=== PATIENT | female | born 1985 | race Caucasian/White ===

== ENCOUNTER 2018-05-19 08:23 | Emergency (ER) | payer MEDICAID ==
[~2018-05-19 08:23] MED LIST: AZI250 PO; BENZ-23 PO; GUAI480S48 PO; PREN-67 PO
--- NOTE | 2018-05-19 08:35 | ER Report ---
History and Physical Time Seen By MD: 08:33 Hx. of Stated Complaint: pateint reports that she is around 4-5 weeks . she noticed some bleeding earlier today after using the restroom HPI/ROS CHIEF COMPLAINT: Vaginal bleeding with HISTORY OF PRESENT ILLNESS: Patient is a 33-year-old female G2 para 1 1st was a full-term normal spontaneous vaginal delivery she is a smoker smoker for almost 15 years believe she is approximately 4-5 weeks her last menstrual cycle was 4-1/2 weeks ago she's taken 3 urine test all of which been positive that she has not seen any OB physicians at this point. Patient states that she awoke this morning had some mild abdominal cramping went to the bathroom after she urinated and noticed that there was some blood from her vagina denies any clots denies any abdominal pain at time of presentation. Patient's recent sexual activity was last evening. Patient denies any chest pain shortness of breath nausea vomiting diarrhea fever chills or additional complaints REVIEW OF SYSTEMS: Respiratory: No cough, no dyspnea. Cardiovascular: No chest pain, no palpitations. Gastrointestinal: No vomiting, no abdominal pain. Musculoskeletal: No back pain. Remainder of the 14 system rev: Yes Allergies: Coded Allergies: No Known Allergies (Verified Allergy, Mild, 07/06/07) Home Meds Reported Medications Vits W-Ca,Fe,Fa(<1MG) () 1 Tab Tablet, 1 TAB PO 1 PER DAY 07/06/07 Discontinued Reported Medications Benzonatate (Tessalon Perle) 100 Mg Capsule, 100 MG PO 1 TABLET EVERY 6 HOURS NEEDED FOR COUGH 07/06/07 Guaifenesin/Hydrocodone Bit (Hycotuss Expectorant) 480 Ml Syrup, 5 ML PO EVERY 4 HOURS NEEDED FOR COUGH 07/06/07 Azithromycin (Zithromax) 250 Mg Tab, 250 MG PO QDAY Z PACK INSTRUCTED 07/06/07 Reviewed Nurses Notes: Yes Old Medical Records Reviewed: Yes Hx Substance Use Disorder: No Hx Alcohol Use: No Constitutional Vital Sign - Last 24 Hours 05/19/18 05/19/18 05/19/18 05/19/18 08:27 08:30 08:53 09:00 Pulse 98 83 Resp 20 B/P (MAP) 107/71 107/71 (83) 108/68 (81) Pulse Ox 94 97 11/14/18 11/14/18 09:23 09:30 Pulse 78 B/P (MAP) 94/61 (72) Pulse Ox 98 Physical Exam General Appearance: The patient is alert, has no immediate need for airway protection and no current signs of toxicity. [ ] Eyes: Pupils equal and round no injection. Respiratory: Chest is non tender, lungs are clear to auscultation. Cardiac: regular rate and rhythm [ ] Gastrointestinal: Abdomen is soft and non tender, no masses, bowel sounds normal. Musculoskeletal: Neck: Neck is supple and non tender. Extremities have full range of motion and are non tender. Skin: No rashes or lesions. Pelvic examination deferred DIFFERENTIAL DIAGNOSIS: After history and physical exam differential diagnosis was considered for threatened miscarriage miscarriage no more vaginal intrauterine Medical Decision Making Data Points Result Diagram: 05/19/18 0840 Laboratory Hematology Test 05/19/18 08:40 Red Blood Count 4.48 M/uL (4.17-5.56) Mean Corpuscular Volume 94.1 fL (80.0-96.0) Mean Corpuscular Hemoglobin 33.7 pg (26.0-33.0) Mean Corpuscular Hemoglobin Concent 35.8 g/dL (32.0-36.0) Red Cell Distribution Width 12.6 % (11.5-14.5) Mean Platelet Volume 6.7 fL (7.2-11.1) Neutrophils (%) (Auto) 68.2 % (39.4-72.5) Lymphocytes (%) (Auto) 22.6 % (17.6-49.6) Monocytes (%) (Auto) 7.0 % (4.1-12.4) Eosinophils (%) (Auto) 1.2 % (0.4-6.7) Basophils (%) (Auto) 1.0 % (0.3-1.4) Nucleated RBC Relative Count (auto) 0.0 /100WBC Neutrophils # (Auto) 6.1 K/uL (2.0-7.4) Lymphocytes # (Auto) 2.0 K/uL (1.3-3.6) Monocytes # (Auto) 0.6 K/uL (0.3-1.0) Eosinophils # (Auto) 0.1 K/uL (0.0-0.5) Basophils # (Auto) 0.1 K/uL (0.0-0.1) Nucleated RBC Absolute Count (auto) 0.00 K/uL Prothrombin Time 13.2 seconds (12.0-14.4) Prothromb Time International Ratio 1.00 Activated Partial Thromboplast Time 31 seconds (23-35) Human Chorionic Gonadotropin, Quant 26399 mIU/ml Chemistry Test 05/19/18 08:40 White Blood Count 8.9 k/uL (4.5-11.0) Red Blood Count 4.48 M/uL (4.17-5.56) Hemoglobin 15.1 g/dL (12.0-16.0) Hematocrit 42.2 % (34.0-47.0) Mean Corpuscular Volume 94.1 fL (80.0-96.0) Mean Corpuscular Hemoglobin 33.7 pg (26.0-33.0) Mean Corpuscular Hemoglobin Concent 35.8 g/dL (32.0-36.0) Red Cell Distribution Width 12.6 % (11.5-14.5) Platelet Count 290 K/uL (150-450) Mean Platelet Volume 6.7 fL (7.2-11.1) Neutrophils (%) (Auto) 68.2 % (39.4-72.5) Lymphocytes (%) (Auto) 22.6 % (17.6-49.6) Monocytes (%) (Auto) 7.0 % (4.1-12.4) Eosinophils (%) (Auto) 1.2 % (0.4-6.7) Basophils (%) (Auto) 1.0 % (0.3-1.4) Nucleated RBC Relative Count (auto) 0.0 /100WBC Neutrophils # (Auto) 6.1 K/uL (2.0-7.4) Lymphocytes # (Auto) 2.0 K/uL (1.3-3.6) Monocytes # (Auto) 0.6 K/uL (0.3-1.0) Eosinophils # (Auto) 0.1 K/uL (0.0-0.5) Basophils # (Auto) 0.1 K/uL (0.0-0.1) Nucleated RBC Absolute Count (auto) 0.00 K/uL Prothrombin Time 13.2 seconds (12.0-14.4) Prothromb Time International Ratio 1.00 Activated Partial Thromboplast Time 31 seconds (23-35) Human Chorionic Gonadotropin, Quant 55709 mIU/ml Coagulation Test 05/19/18 08:40 Prothrombin Time 13.2 seconds Prothromb Time International Ratio 1.00 Activated Partial Thromboplast Time 31 seconds ED Course/Re-evaluation ED Course ED clinical course medical decision-making this 31-year-old female with a ultrasound confirming most likely twinjet station this is been confirmed the ultrasound read by radiology blood test confirmed a hCG GERD 13,000 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
[2018-05-19 08:49] LABS: PLATELET COUNT, AUTOMATED 290 K/uL (150-450)
[2018-05-19 10:00] VITALS: BP 90/61
--- NOTE | 2018-05-19 10:16 | RADIOLOGY IMAGING REPORT ---
FACILITY: [facility] PATIENT NAME: Krista Lieberman : 1985 MR: [id number] V: [id number] EXAM DATE: ORDERING PHYSICIAN: HEDY LOMBARDO TECHNOLOGIST: Location: [facility] Patient: Krista Lieberman : 1985 Visit/Account:[id number] Date of Sevice: 05/19/2018 OB Ultrasound < 14 weeks Additional Pertinent history: Vaginal bleeding with early COMPARISON STUDIES: None available FINDINGS: Gestational sac: intrauterine and unremarkable Yolk sac: Two separate yolk sacs are visualized. pole: Not visualized Estimated gestational age: Gestational age measures approximately five weeks five days via the single gestational sac. Subchorionic hemorrhage: none Uterus: gravid, otherwise negative Maternal ovaries: Unremarkable: Right-sided corpus luteal cyst. Adnexa: No adnexal mass lesion or focal abnormality. Free pelvic fluid: none IMPRESSION: 1. There is a singular intrauterine gestational sac with two separate yolk sacs visualized. No feta l poles are identified. The finding is suspicious for a early monochorionic twin gestation. Continu ed follow-up is recommended. Report Dictated By: Hedy Ace MD at 05/19/2018 9:57 AM Report E-Signed By: Hedy Ace MD at 05/19/2018 10:08 AM WSN:MERE
== END 2018-05-19 10:16 | disposition home or self-care (01) ==
LOC: ER 09:20
DX: O20.0 Threatened abortion (principal); Z3A.01 Less than 8 weeks gestation of pregnancy
CPT/HCPCS: 36415; 76817; 84702; 85025; 85610; 85730; 86900; 86901; 99284

== ENCOUNTER → 2018-06-07 | Outpatient (CLI) | payer MEDICAID ==
[~2018-06-07] MED LIST changes: +AMOX500T10 PO; +RHO(150015 IM
--- NOTE | 2018-06-07 11:26 | RADIOLOGY IMAGING REPORT ---
FACILITY: [facility] PATIENT NAME: Krista Lieberman : 1985 MR: [id number] V: [id number] EXAM DATE: ORDERING PHYSICIAN: GARY RAVI TECHNOLOGIST: Location: [facility] [place] Patient: Krista Lieberman : 1985 Visit/Account:[id number] Date of Sevice: 06/07/2018 Transvaginal OB Ultrasound HISTORY: TWIN GESTATION - EARLY OB (REPEAT) COMPARISON: May 19, 2018 TECHNIQUE: Transvaginal imaging was performed for detailed assessment of the uterus, , and o varies. FINDINGS: Gestational sac: Single, intrauterine, and unremarkable Yolk sac: Two visualized, yolk sac A 0.28 cm, yolk sac B 0.48 cm Embryo: Two visualized Embryonic cardiac activity: 161 bpm for twin A and 170 bpm for twin B Estimated gestational age by LMP of : Ultrasound age: For twin A is eight weeks and two days by crown-rump length of 1.78 cm For twin B is eight weeks and four days by crown-rump length of 1.91 cm Subchorionic hemorrhage: None visualized. Uterus: Gravid, otherwise unremarkable. Maternal ovaries: There is a 2.08 cm cyst in the right ovary Adnexa: Negative Free pelvic fluid: None. IMPRESSION: Monochorionic/diamniotic twins with gestational age by measurements for twin A eight weeks and two da ys and twin B eight weeks and four days Report Dictated By: Becca Burrows MD at 06/07/2018 11:15 AM Report E-Signed By: Becca Burrows MD at 06/07/2018 11:21 AM WSN:MERE
== END ==
LOC: RAD 08:28
PROVIDERS: ATTEND Student in an Organized Health Care Education/Training Program
DX: O30.001 Twin pregnancy, unspecified number of placenta and unspecified number of amniotic sacs, first trimester (principal); Z3A.08 8 weeks gestation of pregnancy

== ENCOUNTER → 2018-06-24 | Outpatient (CLI) | payer MEDICAID ==
[~2018-06-24] MED LIST changes: +LACT1CAP12; +NITR-105 PO
== END ==
LOC: LAB 08:24
PROVIDERS: ATTEND Student in an Organized Health Care Education/Training Program
DX: Z34.91 Encounter for supervision of normal pregnancy, unspecified, first trimester (principal); O30.001 Twin pregnancy, unspecified number of placenta and unspecified number of amniotic sacs, first trimester
CPT/HCPCS: 36415; 81001; 86592; 86703; 86762; 86850; 86870; 87088; 87340; 87491; 87591

== ENCOUNTER → 2018-07-26 | Outpatient (CLI) | payer MEDICAID ==
[~2018-07-26] MED LIST changes: +BUTA1CAP6 PO
== END ==
LOC: LAB 13:49
PROVIDERS: ATTEND Student in an Organized Health Care Education/Training Program
DX: Z34.92 Encounter for supervision of normal pregnancy, unspecified, second trimester (principal); O30.002 Twin pregnancy, unspecified number of placenta and unspecified number of amniotic sacs, second trimester
CPT/HCPCS: 36415; 82950

== ENCOUNTER 2018-08-01 10:10 | Outpatient (RCR) | payer MEDICAID ==
[~2018-08-01] VITALS: Ht 165.1 cm; Wt 71.2 kg
[~2018-08-01 10:10] MED LIST changes: +BLOO-960 ASDIRECTED; +BLOO-960 MC; +LANC-165; +[UNRECOGNIZED DRUG - CODE]
--- NOTE | 2018-08-01 11:59 | Medical Nutrition Therapy ---
Nutrition Anthropometrics Height (Inches): 65 (stated) Weight (Pounds): 154 (Standing scale with shoes) Ken Nutrition Score: Ken Nutrition Risk Score: Dietary Referral Nutrition Risk Factors: Nutrition Risk Comment: Nutrition/Food History Breakfast: prior to dx: bagel, crm cheese, cold cereal, milk, today: eggs and salsa Lunch: prior to dx: sandwich or travel registered nurse pacu salad or leftover, yesteday: chicken wings Dinner: meat, 1c starch, 1/2c starch or non starchy veg Snacks: fruit, nuts, bread/butter, cookies Nutritional Diagnosis Energy Requirement: 2850 ([place]- [place] Jeor 2200- 2500 kcal + 500 kcal) Nutritional Education Nutrition Education Topic: Diabetic Nutrition Learning Readiness: Eager Teaching Methods: Discussion, Handout, Demonstration Response to Teaching: Verbalize understanding, Reinforcement needed Teaching Recipient: Patient Nutrition Counselin wk PG with twins dx of gestational DM. Reviewed what is gestational DM. How to take BG reading and what are desired range. What to do if hypoglycemic. ( Pt has been running 56-76 prior to breakfast however pt has been cutting out most CHO.) Provided IMG clinic form to record BG. Pt has been checking BG past 3 days before breakfast only. Pt has been recording what she is eating. Reviewed glycemic response and glycemic index. Stressed that pt does not have to cut all CHO, just needs to limit portion size and high GI foods. Encouraged pt to check BG 2 hrs after she eat and record what she ate prior if BG is above desired range. Recommend pt check with provider to see if Free Style Keyla would be an acceptable method to check BG. ( It may not be FDA approved for . But would give her a 24 hr readings.) Provided meal plan of 45gm CHO brft, 45-60gm lunch and supper and 15gm CHO tid between meals. Recommend do 2 hr post meal BG test and then eat snack. Encouraged pt to eat protein and fat with each meal and snack. Pt to f/u 2/4 @ 8:00 am to review BG, wt and intake to ensure adequate kcal consumed. Nutrition Monitoring & Eval RD Patient Assessment Time: 90 minutes Nutritional Comment: Provided 90 minute diabetes education for gestation diabetes focusing on glucometer education, blood glucose reading, and nutrition. Copies To Copies to: GARY RAVI DO ; KEENAN HOGAN Aug 01, 2018 11:59
--- NOTE | 2018-08-10 12:58 | Medical Nutrition Therapy ---
Nutrition Anthropometrics Height (Inches): 65 (stated) Weight (Pounds): 157 (Standing scale with shoes) Ken Nutrition Score: Ken Nutrition Risk Score: Dietary Referral Nutrition Risk Factors: Nutrition Risk Comment: Nutritional Education Nutrition Education Topic: Diabetic Nutrition (gestational) Learning Readiness: Interested Teaching Methods: Discussion Response to Teaching: Verbalize understanding Teaching Recipient: Patient Nutrition Counseling: Pt came back for 1 week f/u. Wt is up 3# from last week. Pt states she felt like she was getting enough to eat. Pt had own BG form. Recommend she use form given to her from her OB docs. BG running 55-80 before breakfast. Pt was not eating a bedtime snack. Encouraged pt to have a bedtime sanck of 30gm CHO plus protein to avoid morning lows. Only 2 BG reading post meals were outside of desired range. Foods were identify that may have contributed. Pt was advised to contact RD if she has any further issues. Nutrition Monitoring & Eval RD Patient Assessment Time: 30 minutes Nutritional Comment: Provided 30 minute diabetes education for gestation diabetes focusing on blood glucose reading, and nutrition. Copies To Copies to: GARY RAVI DO ; KEENAN HOGAN Aug 10, 2018 12:58
[2018-08-13] MEDS ORDERED: CHOL10005 PO (10:51)
[2018-08-13] MEDS ORDERED: ASPI81TA94 PO (10:52)
== END 2018-08-12 16:40 | disposition home or self-care (01) ==
LOC: DIET 10:10
PROVIDERS: ATTEND Student in an Organized Health Care Education/Training Program
DX: O24.419 Gestational diabetes mellitus in pregnancy, unspecified control (principal)
CPT/HCPCS: G0108 ×2

== ENCOUNTER 2018-08-13 10:34 | Emergency (ER) | payer MEDICAID ==
--- NOTE | 2018-08-13 10:38 | ER Report ---
History and Physical Time Seen By MD: 10:38 HPI/ROS CHIEF COMPLAINT: Dizziness HISTORY OF PRESENT ILLNESS: Patient is a 33-year-old female here 18 weeks gestational , complaining of dizziness, generalized weakness, decreased oral intake. Patient denies complications during , abdominal pain, decreased movement. Patient is hemodynamically stable at time of evaluation and in no acute distress. She does report having twin gestation. She is followed by outpatient OFFICE EXECUTIVE. REVIEW OF SYSTEMS: Constitutional: No fever, no chills. Eyes: No discharge. ENT: No sore throat. Cardiovascular: No chest pain, no palpitations. Respiratory: No cough, no shortness of breath. Gastrointestinal: No abdominal pain, no vomiting. Genitourinary: No hematuria. Musculoskeletal: No back pain. Skin: No rashes. Neurological: Dizziness, lightheadedness Allergies: Coded Allergies: No Known Allergies (Verified Allergy, Mild, 07/06/07) Home Meds Active Scripts Blood-Glucose Meter (BLOOD GLUCOSE METER) 1 Each Each, EACH ASDIRECTED 4 TIMES DAILY, #1 Prov:GARY RAVI DO 07/29/18 Lancets (Blood Lancets) 30 Gauge Each, BOX 4 TIMES DAILY, #1 5 Refills Prov:GARY RAVI DO 07/29/18 Blood-Glucose Meter (True Metrix Blood Glucose Mtr) 1 Each Each, BOT 4 TIMES DAILY, #1 5 Refills Prov:GARY RAVI 07/29/18 Butalb/Acetaminophen/Caffeine (FIORICET 50-300-40) 1 Each Capsule, 1-2 EACH PO Q6H, #30 CAPSULE 1 Refill Prov:GARY RAVI 07/21/18 Reported Medications Aspirin (ASPIRIN) 81 Mg Tab.chew, 162 MG PO QDAY, TAB.CHEW 08/13/18 Cholecalciferol (Vitamin D3) (VITAMIN D3) 1,000 Unit Tablet, 1000 UNIT PO, TAB 08/13/18 Lactobacillus Combo No.11 (PROBIOTIC) 1 Each Cap.sprink 06/23/18 Vits W-Ca,Fe,Fa(<1MG) () 1 Tab Tablet, 1 TAB PO 1 PER DAY 07/06/07 Discontinued Scripts Nitrofurantoin Monohyd/M-Cryst (MACROBID 100 MG CAPSULE) 100 Mg Capsule, 100 MG PO BID for 7 Days, #14 CAPSULE 0 Refills Prov:AGRY RAVI DO 06/28/18 Smoking Status: Current: Every Day Smoker Hx Substance Use Disorder: No Hx Alcohol Use: No Constitutional Vital Sign - Last 24 Hours 08/13/18 08/13/18 08/13/18 08/13/18 10:34 10:38 10:38 10:42 Temp 98.4 Pulse ??? 84 Resp 17 B/P (MAP) 109/81 107/81 (90) 102/63 (76) Pulse Ox 97 08/13/18 08/13/18 08/13/18 08/13/18 11:00 11:04 11:30 11:34 Pulse 80 70 B/P (MAP) 90/68 (75) 98/67 (77) Pulse Ox 93 95 08/13/18 08/13/18 08/13/18 12:00 12:04 12:30 Pulse 80 81 B/P (MAP) 99/66 (77) 99/65 (76) Pulse Ox 92 89 Physical Exam General Appearance: The patient is alert, has no immediate need for airway protection and no signs of toxicity. No acute distress Eyes: Pupils equal and round no pallor or injection. ENT, Mouth: Mucous membranes are moist. Respiratory: There are no retractions, lungs are clear to auscultation. Cardiovascular: Regular rate and rhythm. [ ] Gastrointestinal: Abdomen is soft and non tender, no masses, bowel sounds normal. Neurological: No focal neurological findings Skin: Warm and dry, no rashes. Musculoskeletal: Neck is supple non tender. Extremities are nontender, nonswollen and have full range of motion. DIFFERENTIAL DIAGNOSIS: After history and physical exam differential diagnosis was considered for dizziness including but not limited to peripheral and central causes of vertigo, orthostatic causes including dehydration, and blood loss. Medical Decision Making Data Points Result Diagram: 08/13/18 1110 08/13/18 1110 Laboratory Hematology Test 08/13/18 10:57 08/13/18 11:10 Urine Color Yellow Urine Clarity Cloudy Urine pH 7.0 pH (4.8-9.5) Urine Specific [place] 1.011 Urine Protein Negative mg/dL (NEGATIVE) Urine Glucose (UA) Negative mg/dL (NEGATIVE) Urine Ketones Negative mg/dL (NEGATIVE) Urine Blood Negative (NEGATIVE) Urine Nitrite Negative (NEGATIVE) Urine Bilirubin Negative (NEGATIVE) Urine Urobilinogen Negative mg/dL (0.2-1.9) Urine Leukocyte Esterase Trace (NEGATIVE) Urine RBC None /HPF (0-2/HPF) Urine WBC None /HPF (0-5/HPF) Urine Squamous Epithelial Cells Many /LPF (</=FEW) Urine Amorphous Crystals Few /HPF Urine Bacteria Few /HPF (NONE-FEW) Urine Mucus None /HPF (NONE-FEW) Red Blood Count 3.90 M/uL (4.17-5.56) Mean Corpuscular Volume 96.1 fL (80.0-96.0) Mean Corpuscular Hemoglobin 33.7 pg (26.0-33.0) Mean Corpuscular Hemoglobin Concent 35.1 g/dL (32.0-36.0) Red Cell Distribution Width 13.0 % (11.5-14.5) Mean Platelet Volume 6.5 fL (7.2-11.1) Neutrophils (%) (Auto) 77.0 % (39.4-72.5) Lymphocytes (%) (Auto) 15.7 % (17.6-49.6) Monocytes (%) (Auto) 5.7 % (4.1-12.4) Eosinophils (%) (Auto) 1.0 % (0.4-6.7) Basophils (%) (Auto) 0.6 % (0.3-1.4) Nucleated RBC Relative Count (auto) 0.0 /100WBC Neutrophils # (Auto) 9.2 K/uL (2.0-7.4) Lymphocytes # (Auto) 1.9 K/uL (1.3-3.6) Monocytes # (Auto) 0.7 K/uL (0.3-1.0) Eosinophils # (Auto) 0.1 K/uL (0.0-0.5) Basophils # (Auto) 0.1 K/uL (0.0-0.1) Nucleated RBC Absolute Count (auto) 0.00 K/uL Sodium Level 136 mmol/L (137-145) Potassium Level 3.6 mmol/L (3.5-5.0) Chloride Level 112 mmol/L (98-107) Carbon Dioxide Level 20 mmol/L (22-31) Blood Urea Nitrogen 10 mg/dl (7-18) Creatinine 0.50 mg/dl (0.52-1.04) Glomerular Filtration Rate Calc > 60.0 Random Glucose 78 mg/dl (75-110) Calcium Level 9.3 mg/dl (8.4-10.2) Iron Level 250 ug/dl (37-170) Total Iron Binding Capacity 270 ug/dl (261-497) Percent Iron Saturation 92.6 % Total Bilirubin 0.2 mg/dl (0.2-1.3) Aspartate Amino Transf (AST/SGOT) 22 U/L (0-35) Alanine Aminotransferase (ALT/SGPT) 33 U/L (0-56) Alkaline Phosphatase 55 U/L (0-126) Total Protein 6.2 g/dl (6.3-8.2) Albumin 3.5 g/dl (3.5-5.0) Chemistry Test 08/13/18 10:57 08/13/18 11:10 Urine Color Yellow Urine Clarity Cloudy Urine pH 7.0 pH (4.8-9.5) Urine Specific [place] 1.011 Urine Protein Negative mg/dL (NEGATIVE) Urine Glucose (UA) Negative mg/dL (NEGATIVE) Urine Ketones Negative mg/dL (NEGATIVE) Urine Blood Negative (NEGATIVE) Urine Nitrite Negative (NEGATIVE) Urine Bilirubin Negative (NEGATIVE) Urine Urobilinogen Negative mg/dL (0.2-1.9) Urine Leukocyte Esterase Trace (NEGATIVE) Urine RBC None /HPF (0-2/HPF) Urine WBC None /HPF (0-5/HPF) Urine Squamous Epithelial Cells Many /LPF (</=FEW) Urine Amorphous Crystals Few /HPF Urine Bacteria Few /HPF (NONE-FEW) Urine Mucus None /HPF (NONE-FEW) White Blood Count 12.0 k/uL (4.5-11.0) Red Blood Count 3.90 M/uL (4.17-5.56) Hemoglobin 13.2 g/dL (12.0-16.0) Hematocrit 37.5 % (34.0-47.0) Mean Corpuscular Volume 96.1 fL (80.0-96.0) Mean Corpuscular Hemoglobin 33.7 pg (26.0-33.0) Mean Corpuscular Hemoglobin Concent 35.1 g/dL (32.0-36.0) Red Cell Distribution Width 13.0 % (11.5-14.5) Platelet Count 281 K/uL (150-450) Mean Platelet Volume 6.5 fL (7.2-11.1) Neutrophils (%) (Auto) 77.0 % (39.4-72.5) Lymphocytes (%) (Auto) 15.7 % (17.6-49.6) Monocytes (%) (Auto) 5.7 % (4.1-12.4) Eosinophils (%) (Auto) 1.0 % (0.4-6.7) Basophils (%) (Auto) 0.6 % (0.3-1.4) Nucleated RBC Relative Count (auto) 0.0 /100WBC Neutrophils # (Auto) 9.2 K/uL (2.0-7.4) Lymphocytes # (Auto) 1.9 K/uL (1.3-3.6) Monocytes # (Auto) 0.7 K/uL (0.3-1.0) Eosinophils # (Auto) 0.1 K/uL (0.0-0.5) Basophils # (Auto) 0.1 K/uL (0.0-0.1) Nucleated RBC Absolute Count (auto) 0.00 K/uL Glomerular Filtration Rate Calc > 60.0 Calcium Level 9.3 mg/dl (8.4-10.2) Iron Level 250 ug/dl (37-170) Total Iron Binding Capacity 270 ug/dl (261-497) Percent Iron Saturation 92.6 % Total Bilirubin 0.2 mg/dl (0.2-1.3) Aspartate Amino Transf (AST/SGOT) 22 U/L (0-35) Alanine Aminotransferase (ALT/SGPT) 33 U/L (0-56) Alkaline Phosphatase 55 U/L (0-126) Total Protein 6.2 g/dl (6.3-8.2) Albumin 3.5 g/dl (3.5-5.0) Urinalysis Test 08/13/18 10:57 Urine Color Yellow Urine Clarity Cloudy Urine pH 7.0 pH (4.8-9.5) Urine Specific [place] 1.011 Urine Protein Negative mg/dL (NEGATIVE) Urine Glucose (UA) Negative mg/dL (NEGATIVE) Urine Ketones Negative mg/dL (NEGATIVE) Urine Blood Negative (NEGATIVE) Urine Nitrite Negative (NEGATIVE) Urine Bilirubin Negative (NEGATIVE) Urine Urobilinogen Negative mg/dL (0.2-1.9) Urine Leukocyte Esterase Trace (NEGATIVE) Urine RBC None /HPF (0-2/HPF) Urine WBC None /HPF (0-5/HPF) Urine Squamous Epithelial Cells Many /LPF (</=FEW) Urine Amorphous Crystals Few /HPF Urine Bacteria Few /HPF (NONE-FEW) Urine Mucus None /HPF (NONE-FEW) ED Course/Re-evaluation ED Course Patient is a 33-year-old female here 18 weeks chest patient complaining of decreased oral intake, lightheadedness, generalized weakness. Patient does examine is dehydrated and was given 2 L IV fluid resuscitation with significant improvement in symptoms. I performed a bedside ultrasound and saw good movement in both fetuses with good heart rate. Labs are unremarkable, electrolytes were within normal limits, urinalysis did not seem grossly infectious and patient denied history of urinary complaints. Patient was recommended to follow up closely with OFFICE EXECUTIVE and her PCP. Return precautions were provided. Decision to Disposition Date: Aug 13, 2018 Decision to Disposition Time: 12:13 Depart Departure Latest Vital Signs Vital Signs Date Time Temp Pulse Resp B/P (MAP) Pulse Ox O2 Delivery O2 Flow Rate FiO2 08/13/18 12:30 81 99/65 (76) 89 08/13/18 10:38 98.4 17 Impression: Primary Impression: Dizziness Condition: Improved Disposition: HOME OR SELF-CARE Referrals: GARY RAVI DO (PCP) Patient Instructions: Dizziness (ED) Additional Instructions: Please drink plenty of water. Please follow-up with your family doctor in the next 48 hours. Please return promptly if you develop worsening symptoms, fevers, nausea, vomiting, urinary symptoms. BOYD PARKER DO Aug 13, 2018 10:38
[2018-08-13] MEDS ORDERED: CHOL10005 PO (10:51)
[2018-08-13] MEDS ORDERED: ASPI81TA94 PO (10:52)
[2018-08-13] MEDS ORDERED: NS(*) 0.9% 1000 ML BAG 1,000 ML IV ONE ×2 (10:53→11:55)
[2018-08-13 11:23] LABS: PLATELET COUNT, AUTOMATED 281 K/uL (150-450)
[2018-08-13 12:30] VITALS: BP 99/65
--- NOTE | 2018-08-13 16:26 | EKG ---
FACILITY: [facility] - [place] PATIENT NAME: LISBET QUAN : [id number] MR: [id number] V: [id number] EXAM DATE: ORDERING PHYSICIAN: BOYD PARKER TECHNOLOGIST: CODY Test Reason : DIZZINESS Blood Pressure : / mmHG Vent. Rate : 074 BPM Atrial Rate : 074 BPM P-R Int : 158 ms QRS Dur : 084 ms QT Int : 390 ms P-R-T Axes : -04 033 021 degrees QTc Int : 432 ms Normal sinus rhythm Low voltage QRS Nonspecific T wave abnormality Abnormal ECG No previous ECGs available Confirmed by COLIN DOUGLAS ([id number]) on 08/13/2018 10:54:24 PM Referred By: ELENA Confirmed By:COLIN DOUGLAS
--- NOTE | 2018-08-16 22:11 | RT HOLTER TEST ---
FACILITY: [facility] PATIENT NAME: LISBET QUAN : [id number] MR: [id number] V: [id number] EXAM DATE: ORDERING PHYSICIAN: GRAY RAVI TECHNOLOGIST: CODY Hook-up date: 2018-08-13 12:58:00 Duration: 23:48:00 Test Indications: Irreg Heart Beat Medications: N/A 102782 QRS complexes 1873 Ventricular ectopics which represent 1 % of total QRS comp. 11 Supraventricular ectopics which represent <1 % of total QRS comp. * Paced QRS complexes which represent % of total QRS comp. VENTRICULAR ECTOPY 1873 Isolated 12 Bigeminal Cycles 0 Couplets 0 Runs 0 Beats in Runs * Beats LONGEST at * BPM at :: -- * Beats FASTEST at * BPM at :: -- SUPRAVENTRICULAR ECTOPY 11 Isolated 0 Couplets 0 Runs 0 Beats in Runs * Beats LONGEST at * BPM at :: -- * Beats FASTEST at * BPM at :: -- HEART RATES 62 MIN at 03:32:49 2018-08-14 86 AVG 145 MAX at 07:40:45 2018-08-14 LONGEST RR 1.288 secs at 03:19:19 2018-08-14 S-T LEVELS Channel 1 -12.800 mm MIN at 12:58:00 2018-08-13 -12.800 mm MAX at 12:58:00 2018-08-13 Channel 2 -12.800 mm MIN at 12:58:00 2018-08-13 -12.800 mm MAX at 12:58:00 2018-08-13 Channel 3 -12.800 mm MIN at 12:58:00 2018-08-13 -12.800 mm MAX at 12:58:00 2018-08-13 Confirmed by COLIN DOUGLAS ([id number]) on 08/16/2018 10:11:36 PM Referred By: Overread By: COLIN DOUGLAS
== END 2018-08-13 12:58 | disposition home or self-care (01) ==
LOC: ER 11:05
DX: O26.892 Other specified pregnancy related conditions, second trimester (principal); Z3A.18 18 weeks gestation of pregnancy; E86.0 Dehydration; R42 Dizziness and giddiness; R94.31 Abnormal electrocardiogram [ECG] [EKG]
CPT/HCPCS: 81001; 83540; 83550; 85025; 93005; 93225; 96360; 99283; J7030; 82040; 82247; 82310; 82374; 82435; 82565; 82947; 84075; 84132; 84155; 84295; 84450; 84460; 84520; 93226